=== PATIENT | male | born 1950 | race Caucasian/White ===

== ENCOUNTER 2017-02-03 15:24 | Emergency (ER) | payer BC ==
[~2017-02-03] VITALS: Ht 182.9 cm; Wt 83.1 kg
[~2017-02-03 15:24] MED LIST changes: -BUPIVACAINE/EPINEPHRINE 0.5% MPF 1:200,000 30 ML VIAL ONE; -CEFOXITIN SOD 2 GM VIAL ONE; -CIPR1TAB10 PO; -METR-163 PO; -OPTIRAY 320 IV PRN; -OXYC-57 PO; -RANI150T3 PO; -[UNRECOGNIZED DRUG - OTHER] PO
[2017-02-03 15:28] VITALS: Ht 182.9 cm; Wt 83.1 kg
[2017-02-03] MEDS ORDERED: METR-163 PO (16:02)
[2017-02-03] MEDS ORDERED: RANI150T3 PO (16:02)
[2017-02-03] MEDS ORDERED: [UNRECOGNIZED DRUG - OTHER] PO (16:02)
[2017-02-03] MEDS ORDERED: CIPR1TAB10 PO (16:02)
--- NOTE | 2017-02-03 16:44 | DIAGNOSTIC IMAGING REPORT ---
SINGLE VIEW CHEST CLINICAL HISTORY: Preoperative examination. FINDINGS: An AP, portable, upright chest radiograph is compared to study dated 12/15/2011. The cardiomediastinal silhouette is unremarkable. There is atherosclerotic calcification of the thoracic aorta. Chronic interstitial thickening is unchanged from previous. No airspace consolidation, large pleural effusion, or pneumothorax is seen. The bony thorax is grossly intact. IMPRESSION: No active disease in the chest. Electronically signed by: Braulio Schmidt M.D. 02/03/2017 4:43 PM Dictated Date/Time: 02/03/2017 4:41 PM
--- NOTE | 2017-02-03 17:26 | History and Physical: Surg Cnt ---
History & Physical Date Feb 03, 2017. (Traci Castaneda PA-C) Chief Complaint Rectal pain (Traci Castaneda PA-C) History of Present Illness The patient is a 66 year old male with complaints of (Traci Castaneda .BHUPINDER) Past Medical/Surgical History Jason is a pleasant 66 year-old male who presented to emergency room with complaint of rectal pain since . States the pain is more severe when standing up or walking. Lying down helps relieve some pain. States he as hospitalized about 15 years ago with rectal pain and fevers and was diagnosed with diverticulitis however had outpatient follow-up colonoscopy and was never found to have diverticulosis. He states the pain is similar to that episode however not as severe. Denies of any fevers with this rectal pain. Did have some constipation however no other changes in bowel habits. Denies of any blood in stools or black/tarry stools. Denies fever, chills, nausea, vomiting, abdominal pain, or diarrhea. States his PCP, Dr. Apodaca ordered the CT scan of Pelvis this morning and was advised to go to emergency room to see surgeon once he got the results. He was started on Cipro and Flagyl by PCP yesterday, has had two doses of each (last evening and this morning) (Traci Castaneda PA-C) Allergies Coded Allergies: No Known Allergies (Verified , 11/13/06) Home Medications Scheduled Ciprofloxacin Hcl (Cipro), 500 MG PO BID Metronidazole (Flagyl), 500 MG PO BID Multivitamin (Multivitamin), 1 TAB PO DAILY [Tuna Oil], 1 CAP PO DAILY Scheduled PRN Ranitidine Hcl (Zantac), 150 MG PO BID PRN for Indigestion Physical Examination Skin: warm/dry, no rash Eyes: normal inspection, sclerae normal Head: normocephalic, atraumatic Neck: trachea midline Respiratory/Chest: no respiratory distress Cardiovascular: regular rate, rhythm Abdomen / GI: non tender Neurologic/Psych: alert, oriented x 3 Addiitonal Comments: Acacia-anal There is no overlying erythema present. No induration or fluctuance on palpation however patient is tender on the posterior right lateral aspect of the anus. Patient would not let me do digital rectal examination due to discomfort. No fistulas noted on examination. (Traci Castaneda ., PA-C) Diagnosis Acacia-rectal abscess - 3.2 x 2.1 x 2.5 cm rim-enhancing fluid collection posterior to the distal rectum. Extends along lateral aspect of the rectum and has a horseshoe configuration. - afebrile - CBC pending (Traci Castaneda ., PA-C) Plan of Treatment Plan for incision and drainage or perirectal abscess in the operating room Will most likely by outpatient surgery and no admission Continue pain management in the ER up until OR available I have discussed this patient with Dr. Wilburn who is in agreement with above stated findings and treatment plan. (Traci Castaneda ., PA-C) Pt seen and examined. agree with history and physical above. 3.8 cm perirectal abscess. Will drain in OR. Risks of bleeding, infection, fistula formation all discussed. Consent signed. Will likely be able to be discharged following procedure. (Myrna Wilburn MD)
[2017-02-03 17:28] LABS: BASO % 0.2 %; BASO ABS # 0.02 K/uL (0-0.2); COMPLETE YES; EOS % 0.4 %; HEMATOCRIT 40.3 % (42-52); IG% 0.3 %; LYMPH ABS # 0.99 K/uL (1.2-3.4); MEAN CORPUSCULAR HEMOGLOBIN 32.2 pg (25-34); MEAN CORPUSCULAR HGB CONC 36.2 g/dl (32-36); MEAN PLATELET VOLUME 9.7 fL (7.4-10.4); MONO % 9.2 %; NEUT % 80.9 %; PLATELET COUNT 237 K/uL (130-400); RED BLOOD COUNT 4.53 M/uL (4.7-6.1); WHITE BLOOD COUNT 10.95 K/uL (4.8-10.8)
[2017-02-03 17:47] LABS: BUN/CREATININE RATIO 11.4 (10-20); CALCIUM 8.6 mg/dl (8.5-10.1); CREATININE 0.97 mg/dl (0.60-1.40); POTASSIUM 3.8 mmol/L (3.5-5.1)
[2017-02-03] MEDS ORDERED: OXYC-57 PO (18:34)
[2017-02-03 19:03] VITALS: O2SAT 98
[2017-02-03] MEDS ORDERED: CEFOXITIN IV 2,000 MG in DEXTROSE 5% 50ML 50 ML IV SCH (19:45)
[2017-02-03] MEDS ORDERED: FENTANYL CITRATE INJ 50 MCG/1 ML 2 ML VIAL ONE (19:57)
[2017-02-03] MEDS ORDERED: PERCOCET HOME PACK PO ONE (20:00)
[2017-02-03] MEDS ORDERED: PROPOFOL IV EMULSION 10 MG/ML 20 ML VIAL IV ONE (20:12)
[2017-02-03] MEDS ORDERED: SUCCINYLCHOLINE CHLORIDE 20 MG/ML 10 ML VIAL IV ONE (20:12)
[2017-02-03] MEDS ORDERED: ONDANSETRON INJ 2 MG/ML 2 ML VIAL ONE (20:12)
[2017-02-03] MEDS ORDERED: D5W AND 1/2NSS + 20MEQ KCL 1,000 ML IV SCH (20:15)
[2017-02-03] MEDS ORDERED: MoRPHine SULFATE 4 MG/ML 1 ML CARP\\VIAL IV PRN (20:15)
[2017-02-03] MEDS ORDERED: OXYCODONE/ACETAMINOPHEN 5-325 TAB PO PRN ×2 (20:15)
[2017-02-03] MEDS ORDERED: ONDANSETRON INJ 2 MG/ML 2 ML VIAL IV PRN ×2 (20:15→20:30)
[2017-02-03] MEDS ORDERED: ACETAMINOPHEN 325 MG TAB PO PRN (20:15)
[2017-02-03] MEDS ORDERED: MoRPHine SULFATE 2 MG/ML CARP IV PRN ×2 (20:15)
--- NOTE | 2017-02-03 20:15 | [facility] Post Operative Brief Note ---
Immediate Operative Summary Operative Date Feb 03, 2017. Pre-Operative Diagnosis perirectal abscess posterior midline Post-Operative Diagnosis same Procedure(s) Performed incision and drainage of perirectal abscess Surgeon Myrna Wilburn MD Plastics Fabricator Or Welder Surgeon(s) none Estimated Blood Loss 5 cc Findings near 4 cm abscess directly posterior midline Fluids (cc crystalloids) 400 cc Specimens wound culture Drains none Anesthesia GET Complication(s) None Disposition Recovery Room / PACU
[2017-02-03] MEDS ORDERED: LIDOCAINE HCL 2% 2 ML VIAL (20MG/ML) ONE (20:20)
--- NOTE | 2017-02-03 20:20 | Discharge Instructions ---
Discharge Instructions Date of Service Feb 03, 2017. Admission Reason for Admission: Anal Pain-Ct Scan Showing Large Cyst Discharge Discharge Diagnosis / Problem: perirectal abscess Discharge Goals Goal(s): Decrease discomfort Activity Recommendations Activity Limitations: resume your previous activity Lifting Limitations: no more than 10 pounds (for 1 wk) Exercise/Sports Limitations: until after follow-up appointment May Resume Sexual Activity: after two weeks Shower/Bathe: tomorrow Driving or Machine Use: resume 1 day after discharge (if off narcotics) . Instructions / Follow-Up Instructions / Follow-Up Keep the packing in for 48 hrs then sit in a bath and remove packing. No need to repack but keep a dry pad in your underwear to collect any drainage. Sit in a warm bath or sitz bath after every bowel movement to keep the area clean. The narcotic pain medicine may constipate you so increase your water intake and take laxatives or stool softeners as needed. Continue the cipro/ flagyl for 5 days. Current Hospital Diet Patient's current hospital diet: Discharge Diet Recommended Diet: Regular Diet Procedures Procedures Performed: incision and drainage perirectal abscess Pending Studies Studies pending at discharge: no Medical Emergencies . Who to Call and When: Medical Emergencies: If at any time you feel your situation is an emergency, please call 911 immediately. . Non-Emergent Contact Non-Emergency issues call your: Surgeon Contact Number: call [phone] to make a f/u appt for 2 wks Call Non-Emergent contact if: you have a fever, your pain is not controlled, wound has increased drainage, wound has increased redness, wound has increased pain . "Provider Documentation" section prepared by Myrna Wilburn. VTE Core Measure Inpt VTE Proph given/why not?: Treatment not indicated [place] Drug Monitoring Program Search Results: patient reviewed within database
[2017-02-03] MEDS ORDERED: FENTANYL CITRATE INJ 50 MCG/1 ML 2 ML VIAL IV PRN (20:30)
[2017-02-03] MEDS ORDERED: ATROPINE SULFATE 0.1 MG/ML 5ML SYR IV PRN (20:30)
[2017-02-03] MEDS ORDERED: EpHEDrine SULFATE INJ 50 MG/ML AMP IV PRN (20:30)
[2017-02-03] MEDS ORDERED: PROMETHAZINE HCL INJ 6.25 MG in SODIUM CHLORIDE 0.9% 50ML 50 ML IV PRN (20:30)
[2017-02-03] MEDS ORDERED: HYDROmorphone INJ 1 MG/ML SYR IV PRN (20:30)
[2017-02-03] MEDS ORDERED: MIX: 0.5% BUPIVACAINE W/EPI 1:200,000+1%LIDO 50:50 INJ ONE (20:32)
[2017-02-03 21:00] VITALS: BP 128/69; PULSE 84; TEMP 37.2; O2SAT 97
--- NOTE | 2017-02-03 21:03 | OPERATIVE REPORT ---
DATE OF OPERATION: 02/03/2017 PREOPERATIVE DIAGNOSIS: Perirectal abscess, posterior midline. POSTOPERATIVE DIAGNOSIS: Same. OPERATIVE PROCEDURE: Incision and drainage of perirectal abscess, posterior midline. SURGEON: Dr. Myrna Wilburn. ELECTRONIC CONSOLE DISPLAY OPERATOR: None. ANESTHESIA: General endotracheal anesthesia. ESTIMATED BLOOD LOSS: 5 mL. IV FLUIDS: 400 mL. SPECIMENS: Wound culture. COMPLICATIONS: None. OPERATIVE FINDINGS: A small 4 cm abscess, posterior midline. INDICATIONS: Mr. Emery is a 66-year-old gentleman who presented with a perirectal abscess. He was consented regarding drainage. PROCEDURE IN DETAIL: The patient underwent induction of general endotracheal anesthesia. He received antibiotics preoperatively. After the induction of his anesthesia, he was positioned in lithotomy. His perirectal area was sterilely prepped and draped. An abscess could be felt directly posterior midline. This area was anesthetized with local anesthesia. A skin incision was made and the abscess cavity entered. A wound culture was taken. The cavity was irrigated. Loculations were broken up. The cavity was then packed with half-inch Nu Gauze. Sterile gauze was applied to the external area. The patient tolerated the procedure well and was taken to recovery in stable condition. I attest to the content of the Intraoperative Record and any orders documented therein. Any exceptio ns are noted below.
--- NOTE | 2017-02-03 21:17 | Anesthesiology Progress Note ---
Anesthesia Post Op Note Date & Time Feb 03, 2017 at 21:17 Vital Signs Pain Intensity: 0 Vital Signs Past 12 Hours Date Time Temp Pulse Resp B/P Pulse Ox O2 Delivery O2 Flow Rate FiO2 02/03/17 20:51 37.4 82 18 114/73 98 Room Air 02/03/17 20:50 111 20 118/71 97 Room Air 02/03/17 20:40 88 20 125/67 97 Room Air 02/03/17 20:30 37.0 87 20 133/72 99 Room Air 02/03/17 20:20 37.0 89 20 127/73 100 Mask 10 02/03/17 19:03 78 18 90/66 98 02/03/17 15:28 36.8 95 18 134/78 98 Room Air Notes Mental Status: alert / awake / arousable, participated in evaluation Pt Amnestic to Procedure: Yes Nausea / Vomiting: adequately controlled Pain: adequately controlled Airway Patency, RR, SpO2: stable & adequate BP & HR: stable & adequate Hydration State: stable & adequate Anesthetic Complications: no major complications apparent
[2017-02-03 21:30] VITALS: BP 113/68; PULSE 76; TEMP 37.2; O2SAT 99
[2017-02-03 22:00] VITALS: BP 122/74; PULSE 75; TEMP 37.2; O2SAT 99
--- NOTE | 2017-02-04 01:53 | EMERGENCY ROOM VISIT NOTE ---
ED Visit Note First contact with patient: 15:37 Chief Complaint: Rectal abscess. History of Present Illness: Mr. Emery is a 66-year-old white male who ambulates into the ED accompanied by female friend complaining of rectal abscess. Patient reports he has been having ongoing rectal pain since last , 5 days ago. He did contact his PCP, Dr. Apodaca, and had a pelvic CT with contrast done earlier today which showed a 3.2 x 3.1 x 2.5 cm perirectal abscess posterior to the distal rectum with a horseshoe configuration. He reports his PCP attempted to contact his surgeon for follow-up care but was unsuccessful so the patient was referred to the ED. Currently he reports he is having mild rectal pain at rest. He places it around his rectum. His pain is nonradiating. His pain worsens with ambulation and he rates his discomfort 7/10. His pain is then relieved by rest. He has not taken any medications for pain prior to arrival at the hospital. Associated with his pain is painful bowel movements and rectal examinations. He denies any fevers, chills, sweats, skin eruptions, skin color changes, upper respiratory tract symptoms, cough, wheezing, shortness of breath, chest pain, abdominal pain, nausea, vomiting, diarrhea, constipation, rectal bleeding, black /tarry stools, urinary symptoms, back/flank pain. Review of Systems: As noted above in history of present illness. All body systems were reviewed and found to be negative as noted above. Past Medical History: Diverticulitis, GERD. Current Medications: Multivitamins, Flagyl, Cipro, Zantac. Allergies to Medications: Patient denies. Social History: Patient is currently employed; he feels safe in his home environment; he denies tobacco use. Physical Examination: Vital Signs: Date Time Temp Pulse Resp B/P Pulse Ox O2 Delivery O2 Flow Rate FiO2 02/03/17 22:00 37.2 75 20 122/74 99 Room Air 02/03/17 21:30 37.2 76 20 113/68 99 Room Air 02/03/17 21:00 37.2 84 20 128/69 97 Room Air 02/03/17 20:51 37.4 82 18 114/73 98 Room Air 02/03/17 20:50 111 20 118/71 97 Room Air 02/03/17 20:40 88 20 125/67 97 Room Air 02/03/17 20:30 37.0 87 20 133/72 99 Room Air 02/03/17 20:20 37.0 89 20 127/73 100 Mask 10 02/03/17 19:03 78 18 90/66 98 02/03/17 15:28 36.8 95 18 134/78 98 Room Air GENERAL: 66-year-old male in no acute distress, nontoxic-appearing, afebrile and hemodynamically stable. NEUROLOGICAL: Awake, alert and oriented to person, place and time. Answering questions appropriately and following commands. Good hand eye coordination. No focal motor sensory deficits. SKIN: Warm, dry and pink. No soft tissue eruptions or trauma noted. HEENT: Atraumatic and normocephalic. PERRLA. Sclera white and conjunctiva pink. No drainage from naris. Oral cavity moist and pink. Pharynx is nonerythematous or edematous. Speech normal. No lymphadenopathy. Trachea midline. No jugular venous distention. BACK: No tenderness over the bony spine. No CVA tenderness. THORAX: Lungs sounds are clear to auscultation and equal bilaterally with symmetrical chest wall. No wheezing, rales or rhonchi. No crepitus, tenderness , subcutaneous air or deformities noted. HEART: Regular rate and rhythm. No gallops, rubs or murmurs are appreciated. ABDOMEN: Flat, soft and nontender. Positive bowel sounds in all quadrants. No guarding, rigidity or organomegaly. RECTAL: External view only. No local erythema or edema. No external hemorrhoids. EXTREMITIES: Moves all extremities well on command and with purpose. All distal neurovascular statuses are intact and equal bilaterally. ED Course: Patient is assessed as noted above. Laboratory Testing: Test 02/03/17 17:20 Range/Units White Blood Count 10.95 4.8-10.8 K/uL Red Blood Count 4.53 4.7-6.1 M/uL Hemoglobin 14.6 14.0-18.0 g/dL Hematocrit 40.3 42-52 % Mean Corpuscular Volume 89.0 80-100 fL Mean Corpuscular Hemoglobin 32.2 25-34 pg Mean Corpuscular Hemoglobin Concent 36.2 32-36 g/dl Platelet Count 237 130-400 K/uL Mean Platelet Volume 9.7 7.4-10.4 fL Neutrophils (%) (Auto) 80.9 % Lymphocytes (%) (Auto) 9.0 % Monocytes (%) (Auto) 9.2 % Eosinophils (%) (Auto) 0.4 % Basophils (%) (Auto) 0.2 % Neutrophils # (Auto) 8.86 1.4-6.5 K/uL Lymphocytes # (Auto) 0.99 1.2-3.4 K/uL Monocytes # (Auto) 1.01 0.11-0.59 K/uL Eosinophils # (Auto) 0.04 0-0.5 K/uL Basophils # (Auto) 0.02 0-0.2 K/uL RDW Standard Deviation 39.5 36.4-46.3 fL RDW Coefficient of Variation 12.3 11.5-14.5 % Immature Granulocyte % (Auto) 0.3 % Immature Granulocyte # (Auto) 0.03 0.00-0.02 K/uL Sodium Level 140 136-145 mmol/L Potassium Level 3.8 3.5-5.1 mmol/L Chloride Level 105 98-107 mmol/L Carbon Dioxide Level 27 21-32 mmol/L Anion Gap 8.0 3-11 mmol/L Blood Urea Nitrogen 11 7-18 mg/dl Creatinine 0.97 0.60-1.40 mg/dl Est Creatinine Clear Calc Drug Dose 83.4 ml/min Estimated GFR () 94.6 Estimated GFR (Non- 81.6 BUN/Creatinine Ratio 11.4 10-20 Random Glucose 90 70-99 mg/dl Calcium Level 8.6 8.5-10.1 mg/dl Chest X-Ray: Was read by myself and the radiologist showing no acute infiltrates , effusions or pneumothorax. Normal heart silhouette and bony anatomy. Chronic interstitial thickening is unchanged from previous x-rays. EKG: Shows normal sinus rhythm with sinus arrhythmia. Ventricular rate 65 bpm. Possible left atrial enlargement and right ventricle conduction delay. Patient's case was consulted with Ms. Betsy Castaneda PA-C, general surgery; for surgical evaluation and care. Patient was educated about tonight's findings. Clinical Impression: Rectal abscess. Disposition and Plan: Patient to be taken to the OR for surgical treatment of his abscess by Dr. Myrna Wilburn; please see her notes and orders for final disposition and plan.
--- NOTE | 2017-02-11 12:45 | Pharmacy Progress Note ---
ED Pharmacist Culture FollowUp Date of Service: Feb 11, 2017. Patient was sent home with instructions to continue metronidazole, which should cover the Bacteroides fragilis growing from the patient's perianal abscess culture. Spoke w Dr. Myrna Wilburn - aware that Group B beta Strep (rare) isolated from same culture and confirmed that no intervention required.
== END 2017-02-03 22:02 | disposition home or self-care (01) ==
LOC: C.EDB 15:26
DX: K61.1 Rectal abscess (principal); K57.32 Diverticulitis of large intestine without perforation or abscess without bleeding; K21.9 Gastro-esophageal reflux disease without esophagitis

== ENCOUNTER → 2017-02-03 | Outpatient (CLI) | payer BC ==
[~2017-02-03] MED LIST: BUPIVACAINE/EPINEPHRINE 0.5% MPF 1:200,000 30 ML VIAL ONE; CEFOXITIN SOD 2 GM VIAL ONE; CIPR1TAB10 PO; METR-163 PO; MULT-506 PO; OMEP20CA59 PO; OPTIRAY 320 IV PRN; OXYC-57 PO; RANI150T3 PO; [UNRECOGNIZED DRUG - OTHER] PO; livaplex PO
--- NOTE | 2017-02-03 08:59 | DIAGNOSTIC IMAGING REPORT ---
CT OF THE PELVIS WITH CONTRAST CT DOSE: 212.81 mGy.cm CLINICAL HISTORY: Rectal pain. Rectal abscess. TECHNIQUE: Axial images of the pelvis were obtained following intravenous injection of 119 cc Optiray 320 IV. Oral contrast was administered. COMPARISON STUDY: CT of the abdomen and pelvis April 27, 2015. FINDINGS: Note is made of a 3.2 x 3.1 x 2.5 cm rim-enhancing fluid collection posterior to the distal rectum. This extends along the lateral aspect of the rectum and has a horseshoe type configuration. This is consistent with a perirectal abscess. No additional fluid collections are present. There is sigmoid diverticulosis without evidence for acute diverticulitis. No pelvic lymphadenopathy is present. No significant skeletal abnormality is are identified. IMPRESSION: 3.2 x 3.1 x 2.5 cm perirectal abscess posterior to the distal rectum with a horseshoe configuration. Electronically signed by: Alfonzo Mcneill M.D. 02/03/2017 8:58 AM Dictated Date/Time: 02/03/2017 8:54 AM
== END | disposition home or self-care (01) ==
LOC: C.CTS 08:14
PROVIDERS: ATTEND Family Medicine
DX: K61.1 Rectal abscess (principal)

== ENCOUNTER → 2017-07-09 | Outpatient (CLI) | payer BC ==
[~2017-07-09] MED LIST changes: +CIPR1TAB10 PO; +METR-163 PO; -OMEP20CA59 PO; +OXYC-57 PO; +RANI150T3 PO; +[UNRECOGNIZED DRUG - OTHER] PO; -livaplex PO
--- NOTE | 2017-07-09 16:17 | DIAGNOSTIC IMAGING REPORT ---
ABDOMEN FOR HERNIA CLINICAL HISTORY: 66 years-old Male presenting with AB PAIN, R/O ABCESS VS INGUINAL HERNIA. TECHNIQUE: Real-time grayscale ultrasound imaging of the left inguinal region was performed. Color Doppler was also performed. COMPARISON: CT of the pelvis from 02/03/2017.. FINDINGS: Dynamic ultrasound examination demonstrated a 1.2 cm suspected defect in the anterior abdominal wall with a outpouching of hypoechoic material suggestive of intra-abdominal fat. This was felt to reduce upon compression. No fluid collection or other abnormality. No intra-abdominal free fluid in the left lower quadrant. IMPRESSION: 1. Suspected small fat-containing left inguinal hernia. Electronically signed by: Horacio Spencer M.D. 07/09/2017 4:16 PM Dictated Date/Time: 07/09/2017 4:14 PM
== END | disposition home or self-care (01) ==
LOC: C.ULTR 15:52
PROVIDERS: ATTEND Family Medicine
DX: R10.9 Unspecified abdominal pain (principal)

== ENCOUNTER → 2018-02-12 | Outpatient (CLI) | payer OTHER, BC ==
[~2018-02-12] MED LIST changes: -OXYC-57 PO
--- NOTE | 2018-02-12 13:05 | DIAGNOSTIC IMAGING REPORT ---
ULTRASOUND LEFT GROIN NONVASCULAR CLINICAL HISTORY: Left inguinal hernia. COMPARISON STUDY: Pelvic CT dated 04/27/2015. Left groin ultrasound dated 07/09/2017. FINDINGS: Real-time grayscale sonography of the left groin is performed to assess for inguinal hernia. There is a tiny reducible fat-containing left inguinal hernia identified. This appears smaller than on the 07/09/2017 examination. There is no bowel in the hernia sac. No left inguinal adenopathy is seen. IMPRESSION: There is a tiny and reducible fat-containing left inguinal hernia identified. Electronically signed by: Braulio Schmidt M.D. 02/12/2018 1:03 PM Dictated Date/Time: 02/12/2018 1:02 PM
== END | disposition home or self-care (01) ==
LOC: C.ULTR 12:28
PROVIDERS: ATTEND Family Medicine
DX: R10.9 Unspecified abdominal pain (principal); K40.90 Unilateral inguinal hernia, without obstruction or gangrene, not specified as recurrent